=== PATIENT | male | born 1965 | race Caucasian/White ===

== ENCOUNTER 2016-12-12 11:41 | Emergency (ER) | payer OTHER ==
[~2016-12-12] VITALS: Ht 170.2 cm; Wt 140.0 kg
[2016-12-12] MEDS ORDERED: 0.9% Sodium Chloride 1,000 ML IV ONE (11:54)
--- NOTE | 2016-12-12 11:54 | ED.REPORT ---
HPI-General Illness Date of Service December 12, 2016 ED Provider: Mercy Travis MD The patient is a 51 year old male with no pertinent medical history, who was brought to the emergency department by EMS after he had a syncopal episode at urgent care prior to arrival. The patient presented to urgent care complaining of 2 days of nose pain/swelling, upper mouth/dental pain, mild headache, and myalgias. He had a syncopal episode at urgent care and came to with a sternal rub. He was able to answer questions for medics. They did not appreciate any focal neurologic symptoms. His 12 lead EKG looked good. His initial pressure was 94 systolic which improved with a small amount of IVF fluids en route. He denies neck pain, fevers, chills or vomiting. Nursing Notes Stated Complaint: SYNCOPE Nursing Notes Reviewed: Yes Allergies: Coded Allergies: No Known Allergies (Verified Allergy, Unknown, 02/14/15) Scheduled Clindamycin (Clindamycin) 300 Mg Capsule 300 MG PO TID Sulfamethoxazole/Trimeth 800-160 mg (Bactrim DS) 1 Each Tablet 1 TABLET PO BID General Time Seen by MD: 11:47 Chief Complaint Other (syncope) Hx Obtained From: Patient, EMS Arrived By: Ambulance Sudden in Onset?: Yes Onset Occurred: Just prior to arrival Symptom Duration: 1 - 15 minutes Location: : Face: Mouth Quality: Painful Severity: Current: Moderate Severity: Maximum: Severe Recent Healthcare: No recent hospitalization Similar Sx Previous: No Past Medical History Past Medical History None reported Past Surgical History None reported Family History Noncontributory Smoking History Current Every Day Smoker Social History Denies IV drug use or recreational drug use aside from marijuana. Recent of girlfriend. Drug Use: THC Other Social History: Local resident, Homeless Ambulatory Status Independent Review of Systems +facial pain, nose pain Full Review of Systems Constitutional: Denies: Chills, Fever Ears / Nose / Throat: Reports: Mouth pain, Toothache Musculoskeletal: Reports: Myalgia, Denies: Neck pain Neurologic: Reports: Change LOC, Headache, Syncope Complete sys rev & neg: except as marked. Physical Exam Vital Signs Vital Signs Date Time Temp Pulse Resp B/P Pulse Ox O2 Delivery O2 Flow Rate FiO2 12/12/16 16:20 72 17 142/99 98 Room Air 12/12/16 15:28 66 18 142/99 98 Room Air 12/12/16 14:00 59 18 140/89 100 Room Air 12/12/16 11:55 36.2 70 17 134/95 98 Room Air Initial VS: Reviewed Head / Eyes: Normocephalic, PERRL Respiratory: Breath sounds normal, Clear to auscultation, No respiratory distress Abdomen / GI: Soft, Non-tender, No guarding, No rebound, No distention Lymphatic: No lymphadenopathy Extremities: Vascular intact, Neuro intact, No swelling, No tenderness Skin: Warm, Dry, No cyanosis Neurologic: Alert, Oriented, Nonfocal Psychiatric: Mood/affect normal, Behavior normal, Normal thought content General/Constitutional: Awake, Alert, Cooperative Thin but well muscled. ENT: Airway patent Midface, frenulum, upper lip, and septum are all exquisitely tender and very full and skin is slightly red. There is nothing on the roof of his mouth. His upper gums on the front under the frenulum are pale but there is no purulent drainage. Neck: No midline vertebral tend Meningeal Signs / ROM: Negative: Brudzinski's positive, Kernig's positive Cardiovascular: Heart rate NL, Regular rhythm, Heart sounds NL, No gallop, No murmurs, No rubs, Cap refill not delayed, Peripheral circulation NL Heart Sounds / Murmur: Negative: Diastolic murmur present., Murmur present..., Systolic murmur present.. Interpretation & Diagnostics Interpretation & Diagnostics: FACT CT W/ CONTRAST IMPRESSION: Soft tissue edema and heterogeneous enhancement of the philtrum of the upper lip with at least phlegmonous soft tissue changes just underlying the soft tissue portion of the inferior nasal septum. A very small abscess within this region likely is present. Dictated by: Dwayne Lemon M.D. on 12/12/2016 at 12:47 Lab Results Interpretation Result Diagram: 12/12/16 1202 12/12/16 1202 Test 12/12/16 12:02 12/12/16 13:19 White Blood Count 14.6th/mm3 (3.8-10.1) Red Blood Count 4.58mil/mm3 (4.40-5.80) Hemoglobin 13.9g/dL (13.8-17.2) Hematocrit 40.5% (41.0-50.0) Mean Corpuscular Volume 88.4fL (81-100) Mean Corpuscular Hemoglobin 30.3pg (27.0-35.0) Mean Corpuscular Hemoglobin Concent 34.3% (32.0-37.0) Red Cell Distribution Width 12.4% (12.3-15.4) Platelet Count 280bil/L (150-400) Neutrophils (%) (Auto) 69.6% (40-74) Lymphocytes (%) (Auto) 17.6% (14-46) Monocytes (%) (Auto) 10.2% (4-12) Eosinophils (%) (Auto) 1.9% (0-5) Basophils (%) (Auto) 0.4% (0-3) Sodium Level 137mEq/L (134-144) Potassium Level 4.1mEq/L (3.5-5.2) Chloride Level 98mEq/L (97-108) Carbon Dioxide Level 26mmol/L (18-29) Blood Urea Nitrogen 15mg/dL (6-24) Creatinine 0.92mg/dL (0.76-1.27) Estimat Glomerular Filtration Rate 92mL/min (>59) Glucose Level 106mg/dL (60-99) Lactic Acid Level 1.8mmol/L (0.4-2.0) Calcium Level 9.9mg/dL (8.5-10.1) Total Bilirubin 0.4mg/dL (0.0-1.2) Aspartate Amino Transf (AST/SGOT) 18U/L (0-50) Alanine Aminotransferase (ALT/SGPT) 18U/L (0-44) Alkaline Phosphatase 114U/L (25-150) Troponin T < 0.010ug/L (0.0-0.011) Total Protein 7.4g/dL (6.4-8.4) Albumin 4.1g/dL (3.4-5.0) Procalcitonin 0.07ng/mL (0.00-0.08) Urine Color Yellow (YELLOW) Urine Appearance Clear (CLEAR,HAZY) Urine pH 6.0 (5.0-8.0) Urine Specific [place] 1.015 (1.003-1.035) Urine Protein Negativemg/dL (NEG,TRACE) Urine Glucose (UA) Negativemg/dL (NEGATIVE) Urine Ketones 15mg/dL (NEGATIVE) Urine Occult Blood Negative (NEGATIVE) Urine Nitrite Negative (NEGATIVE) Urine Bilirubin Negative (NEGATIVE) Urine Urobilinogen Normalmg/dL (NORMAL) Urine Leukocyte Esterase Negative (NEGATIVE) Urine RBC 3-10/hpf (0-2) Urine WBC 0-5/hpf (0-5) Urine Epithelial Cells Occasional/hpf (NONE-MOD) Urine Crystals None seen (NONE SEEN) Urine Bacteria None/hpf (NONE-FEW) Urine Hyaline Casts None/lpf (NONE) Urine Granular Casts None seen (NONE SEEN) Urine Waxy Casts None seen (NONE SEEN) Urine Red Blood Cell Casts None seen (NONE SEEN) Urine White Blood Cell Casts None seen (NONE SEEN) Urine Mucus Present (None Seen) Urine Trichomonas None seen (NONE SEEN) Urine Yeast None (NONE SEEN) Urinalysis Comment None Urine Culture Reflexed Not indicated Lab Results Interpretation: Urine drug screen: positive for marijuana, methamphetamines, and amphetamines ECG Interpretation ECG Interpretation: Sinus rhythm with a rate of 63 No acute ischemia Delayed R wave progression Time: 12:05 Interpreted by: ED physician X-Ray Chest Interpretation Chest Xray Interpretation: IMPRESSION: Negative chest. No acute cardiopulmonary process is evident. Dictated by: Dwayne Lemon M.D. on 12/12/2016 at 11:31 Interpretation / Wet Read by: Interpret - Radiologist CT Head Interpretation IMPRESSION: Negative head CT. No acute intracranial hemorrhage. Dictated by: Dwayne Lemon M.D. on 12/12/2016 at 12:45 Study: Head CT no contrast Interpretation / Wet Read by: Interpret - Radiologist Re-Eval/Medical Decision Source of Hx: Old records, EMS Time of Eval: 13:02 Re-Evaluation/Progress Note: The patient is feeling better. Time of Eval: 15:06 Re-Evaluation/Progress Note: Rechecked the patient. He looks significantly better. He does not appear acutely ill. Discussed results, diagnosis, and plan for discharge. All questions were addressed. Counseled Regarding: Diagnosis, Lab results, Need for follow-up, When/why to return to ED Discharge & Departure Primary Impression: Facial abscess Disposition: Home Discharge Condition All VS Reviewed: Yes Condition: Stable Patient Instructions: Abscess (GEN) Additional Instructions: Thank you for entrusting us with your care today. Your CT scan does show evidence of an abscess of your philtrum which is the area above your upper lip. There is no evidence that it is extending back toward your brain or causing other problems. Make sure to take the antibiotic as prescribed and finish the entire course. This will include septra ds am and pm and clindamycin 300 mg 3x/day, each for 10 days. These prescriptions have been sent electronically to [facility] for you today. Followup with your regular doctor next week for re-evaluation. Seek care sooner for any new or worsening symptoms. I hope you feel better soon. Referrals: Jose Rojas ND (PCP) Scribe Attestation Portions of this note were transcribed by Susana Whitlock. I, Dr. Travis personally performed the history, physical exam and medical decision-making; I reviewed and confirmed the accuracy of the information in the transcribed note. Signed by: Hussein Xiao,12/12/2016 at 1545. copies to: Jose Rojas ND, Shawna L MD December 12, 2016 11:54 Susana Whitlock December 12, 2016 12:01
[2016-12-12 11:55] VITALS: BP 134/95; PULSE 70; RESP 17; O2SAT 98
[2016-12-12] MEDS ORDERED: cefTRIAXone Inj 2,000 MG in Dextrose 5% Minibag Plus 50 ML IV ONE (11:55)
[2016-12-12 12:05] LABS: BASOPHILS % (AUTO) 0.4 % (0-3); EOSINOPHILS % (AUTO) 1.9 % (0-5); MONOCYTES % (AUTO) 10.2 % (4-12); Mean Corpuscular Hemoglobin 30.3 pg (27.0-35.0); Mean Corpuscular Volume 88.4 fL (81-100); NEUTROPHILS % (AUTO) 69.6 % (40-74); Platelet Count 280 bil/L (150-400)
--- NOTE | 2016-12-12 12:34 | DRSVH ---
PROCEDURE: X-RAY CHEST ONE VIEW, PORTABLE ([id number]) INDICATIONS: syncope TECHNIQUE: One view of the chest was acquired. COMPARISON: None. FINDINGS: Surgical changes and devices: None. Lungs and pleura: No pleural effusions or pneumothorax. Lungs are clear. There may be mild hyperex pansion of the lungs. Mediastinum: Mediastinal contours appear normal. Heart size is normal. Bones and chest wall: No suspicious bony lesions. Overlying soft tissues appear unremarkable. IMPRESSION: Negative chest. No acute cardiopulmonary process is evident. Dictated by: Dwayne Lemon M.D. on 12/12/2016 at 11:31 Approved by: Dwayne Lemon M.D. on 12/12/2016 at 11:32
[2016-12-12 12:50] LABS: TROPONIN T < 0.010 ug/L (0.0-0.011)
[2016-12-12 13:42] LABS: APPEARANCE,URINE CLEAR (CLEAR,HAZY); COLOR,URINE YELLOW (YELLOW)
[2016-12-12 13:43] LABS: OCCULT BLOOD,URINE NEGATIVE (NEGATIVE); UROBILINOGEN,URINE NORMAL (NORMAL)
--- NOTE | 2016-12-12 13:48 | DRSVH ---
PROCEDURE: CT BRAIN WITHOUT CONTRAST ([id number]) INDICATIONS: altered mental status TECHNIQUE: Noncontrast 4.5 mm thick angled axial sections acquired from the foramen magnum to the vertex, with c oronal reformats. COMPARISON: [facility], CT, CT FACE W CON, 12/12/2016, 13:29. FINDINGS: Image quality: Diagnostic CSF spaces: Basal cisterns are patent. No extra-axial fluid collections. Ventricles are normal in size and shape. Brain: No midline shift. No intracranial masses or hemorrhage. Don-white matter interface is norm al. Skull and face: Calvarium and visualized facial bones are intact, without suspicious lesions. Sinuses: Visualized sinuses and mastoids are clear. IMPRESSION: Negative head CT. No acute intracranial hemorrhage. Dictated by: Dwayne Lemon M.D. on 12/12/2016 at 12:45 Approved by: Dwayne Lemon M.D. on 12/12/2016 at 12:46
--- NOTE | 2016-12-12 13:55 | DRSVH ---
PROCEDURE: CT FACE WITH CONTRAST ([id number]) INDICATIONS: ? midface abscess/nasal septum mass? TECHNIQUE: After the administration of intravenous contrast, 3.0 mm axial sections acquired from the mid-neck to the frontal sinuses, with coronal reformatting. For radiation dose reduction, the following was use d: automated exposure control. COMPARISON: [facility], CT, CT BRAIN WO CON, 12/12/2016, 13:29. FINDINGS: Image quality: Excellent. Soft tissues: Moderate subcutaneous edema with corresponding heterogeneous enhancement is identified along the midline upper lip is in the upper philtrum region. A small suspected loculated fluid colle ction versus phlegmonous soft tissue changes within this region may be present, measuring up to appro ximately 7 mm in diameter (image 10, series 4). The soft tissue portion of the nasal septum may be m inimally inflamed on the inferior margin. However, the majority of the midline nasal septum is unrem arkable. No enlarged lymph nodes. Vascular: Visualized vascular structures appear patent throughout. Bony vascular foramina and canal s appear normal. Bones: Facial bones appear intact, without fractures, erosions, or destruction. Visualized portions of the skull base and auditory canals also appear normal. Incidental note is made of an impacted up per left maxillary molar. Sinuses: Paranasal sinuses are aerated without fluid levels, mucosal thickening, or mucoceles. Mast oid air cells are aerated. IMPRESSION: Soft tissue edema and heterogeneous enhancement of the philtrum of the upper lip with at least phlegm onous soft tissue changes just underlying the soft tissue portion of the inferior nasal septum. A ve ry small abscess within this region likely is present. Dictated by: Dwayne Lemon M.D. on 12/12/2016 at 12:47 Approved by: Dwayne Lemon M.D. on 12/12/2016 at 12:53
[2016-12-12 14:00] VITALS: BP 140/89; PULSE 59; RESP 18; O2SAT 100
[2016-12-12 15:28] VITALS: BP 142/99; PULSE 66; RESP 18; O2SAT 98
[2016-12-12] MEDS ORDERED: SULF1TAB7 PO (15:36)
[2016-12-12] MEDS ORDERED: CLIN-78 PO (15:36)
[2016-12-12 16:20] VITALS: BP 142/99; PULSE 72; RESP 17; O2SAT 98
== END 2016-12-12 16:15 | disposition home or self-care (01) ==
LOC: EDBD 11:41 → SED 11:41
DX: L02.01 Cutaneous abscess of face (principal); R55 Syncope and collapse; M79.1 Myalgia; F17.200 Nicotine dependence, unspecified, uncomplicated; Z59.0 Homelessness
CPT/HCPCS: 36415; 70450; 70487; 71010; 80053; 81000; 83605; 84145; 84484; 85025; 87040; 93005; 96361; 96365; 99285; J0696; Q9967